=== PATIENT | female | born 1960 | race Caucasian/White ===

== ENCOUNTER 2019-02-07 22:02 | Emergency (ER) | payer MEDICARE, MEDICAID ==
[~2019-02-07] VITALS: Ht 162.6 cm; Wt 69.5 kg
[2019-02-07] MEDS ORDERED: METF500T7 PO (22:21)
[2019-02-07] MEDS ORDERED: BENZ2TAB10 PO (22:21)
[2019-02-07] MEDS ORDERED: METO50 PO (22:21)
[2019-02-07] MEDS ORDERED: ACET-2902 PO (22:21)
[2019-02-07] MEDS ORDERED: ISOS60TA4 PO (22:21)
[2019-02-07] MEDS ORDERED: FURO40 PO (22:21)
[2019-02-07] MEDS ORDERED: SULF1TAB3 PO (22:21)
[2019-02-07] MEDS ORDERED: BISA-151 PO (22:21)
[2019-02-07] MEDS ORDERED: VALS160T2 PO (22:21)
[2019-02-07] MEDS ORDERED: ASPI-556 PO (22:21)
[2019-02-07] MEDS ORDERED: KDUR20 PO (22:21)
[2019-02-07] MEDS ORDERED: TRIL8 PO (22:21)
[2019-02-07 22:34] LABS: GLUCOSE,POINT OF CARE 129 MG/DL (70-110)
[2019-02-07 23:30] VITALS: BP 122/79
== END 2019-02-07 23:54 | disposition home or self-care (01) ==
LOC: EMS 22:06
DX: N95.2 Postmenopausal atrophic vaginitis (principal); N81.4 Uterovaginal prolapse, unspecified; F20.9 Schizophrenia, unspecified; E11.9 Type 2 diabetes mellitus without complications; I10 Essential (primary) hypertension; Z79.899 Other long term (current) drug therapy; Z79.82 Long term (current) use of aspirin; Z79.84 Long term (current) use of oral hypoglycemic drugs

== ENCOUNTER 2019-03-06 07:40 | Emergency (ER) | payer MEDICARE, MEDICAID ==
[~2019-03-06] VITALS: Ht 162.6 cm; Wt 68.0 kg
[~2019-03-06 07:40] MED LIST: ACET-2902 PO; ASPI-556 PO; BENZ2TAB10 PO; BISA-151 PO; FURO40 PO; ISOS60TA4 PO; KDUR20 PO; METF500T7 PO; METO50 PO; SULF1TAB3 PO; TRIL8 PO; VALS160T2 PO
[2019-03-06 08:25] LABS: GLUCOSE,POINT OF CARE 102 MG/DL (70-110)
[2019-03-06 08:38] LABS: EOSINOPHILS % (AUTO) 2.5 % (1.0-6.0); HEMATOCRIT 34.9 % (36-46); HEMOGLOBIN 11.2 g/dL (12.0-16.0); LYMPHOCYTES # (AUTO) 1.2 K/uL (1.0-4.8); LYMPHOCYTES % (AUTO) 23.7 % (22.0-44.0); MEAN CORPUSCULAR HEMOGLOBIN 26.4 pg (26.0-34.0); MEAN CORPUSCULAR VOLUME 83 fL (80-100); MONOCYTES # (AUTO) 0.4 K/uL (0.1-1.0); MONOCYTES % (AUTO) 8.1 % (2.0-9.0); NEUTROPHILS # (AUTO) 3.2 K/uL (1.8-7.7); NEUTROPHILS % (AUTO) 64.7 % (40.0-70.0); PLATELET COUNT (AUTO) 233 K/uL (150-450); RED BLOOD CELL COUNT(AUTO) 4.23 MIL/uL (4.00-5.20); RED CELL DISTRIBUTION WIDTH 15.6 % (11.5-14.5)
[2019-03-06 08:52] LABS: ANION GAP 9 mmol/L (8-16); CALCIUM, TOTAL 9.5 mg/dL (8.8-10.5); CARBON DIOXIDE 27 mmol/L (22-29); CHLORIDE 103 mmol/L (98-107); CREATININE 1.04 mg/dL (0.60-1.30); GLOMERULAR FILTR. RATE CALC 54 mL/min (>60); GLUCOSE,RANDOM 98 mg/dL (70-110); POTASSIUM 3.7 mmol/L (3.5-5.1); SODIUM SERUM 139 mmol/L (136-145); UREA NITROGEN, BLOOD 14 mg/dL (7-18)
[2019-03-06] MEDS ORDERED: METOPROLOL TARTRATE 25 MG TABLET PO ONE (09:00)
[2019-03-06] MEDS ORDERED: METOPROLOL TARTRATE 50 MG TABLET PO ONE (09:00)
[2019-03-06 09:05] LABS: ALANINE AMINOTRANSFERASE 23 U/L (12-78); ALBUMIN 3.9 g/dL (3.4-5.0); ALKALINE PHOSPHATASE 90 U/L (46-116); ASPARTATE AMINOTRANSFERASE 20 U/L (15-37); BILIRUBIN,TOTAL 0.4 mg/dL (0.1-1.0); TOTAL PROTEIN, SERUM 7.6 g/dL (6.4-8.2)
[2019-03-06 09:06] LABS: AMPHET/METH SCREEN,URINE NEGATIVE (NEGATIVE); APPEARANCE,URINE CLOUDY (CLEAR); BARBITURATE SCREEN, URINE NEGATIVE (NEGATIVE); BENZODIAZEPINES SCREEN,URINE NEGATIVE (NEGATIVE); BILIRUBIN,URINE NEGATIVE (NEGATIVE); CANNABINOID SCREEN,URINE NEGATIVE (NEGATIVE); COCAINE SCREEN,URINE NEGATIVE (NEGATIVE); GLUCOSE, URINE (UA) NEGATIVE (NEGATIVE); KETONES,URINE NEGATIVE (NEGATIVE); LEUKOCYTE ESTERASE ,URINE LARGE (NEGATIVE); METHADONE SCREEN, URINE NEGATIVE (NEGATIVE); NITRATE,URINE POSITIVE (NEGATIVE); OCCULT BLOOD,URINE TRACE (NEGATIVE); OPIATE SCREEN,URINE NEGATIVE (NEGATIVE); PHENCYCLIDINE SCREEN,URINE NEGATIVE (NEGATIVE); PROTEIN,URINE NEGATIVE (NEGATIVE); UROBILINOGEN,URINE 0.2 mg/dL (<=1.0)
[2019-03-06 09:20] LABS: BACTERIA,URINE Few /HPF (None Seen); RBC,URINE 0-2 /HPF (0-2)
[2019-03-06 09:21] LABS: SQUAMOUS EPITHELIAL CELL,UR Few /LPF (None Seen)
[2019-03-06] MEDS ORDERED: CEPHALEXIN MONOHYDRATE 500 MG CAPSULE PO ONE (10:30)
[2019-03-06 10:45] VITALS: BP 181/92
== END 2019-03-06 10:50 | disposition home or self-care (01) ==
LOC: EMS 07:43
DX: N81.4 Uterovaginal prolapse, unspecified (principal); N39.0 Urinary tract infection, site not specified; I10 Essential (primary) hypertension; E11.9 Type 2 diabetes mellitus without complications; F20.9 Schizophrenia, unspecified; Z79.84 Long term (current) use of oral hypoglycemic drugs; Z79.82 Long term (current) use of aspirin; Z79.899 Other long term (current) drug therapy
CPT/HCPCS: 36415; 80053; 80307; 81001; 82962; 85025; 87077; 87086; 87186; 99283; G0480

== ENCOUNTER 2019-05-08 17:28 | Emergency (ER) | payer MEDICARE, MEDICAID ==
[~2019-05-08] VITALS: Ht 162.6 cm; Wt 70.5 kg
[~2019-05-08 17:28] MED LIST changes: -ACET-2902 PO; +ACET-3207 PO; +METF500T20 PO; -METF500T7 PO
[2019-05-08] MEDS ORDERED: MECLIZINE HCL 25 MG TABLET PO ONE (18:15)
[2019-05-08] MEDS ORDERED: SODIUM CHLORIDE 0.9% 1,000 ML IV ONE (18:15)
[2019-05-08] MEDS ORDERED: METOCLOPRAMIDE HCL 5 MG/ML 2 ML VIAL IVP ONE (18:15)
[2019-05-08] MEDS ORDERED: DiphenhydrAMINE HCL 50 MG/ML VIAL IVP ONE (18:15)
[2019-05-08] MEDS ORDERED: KETOROLAC TROMETHAMINE 30 MG/ML VIAL IVP ONE (18:15)
[2019-05-08 18:16] LABS: GLUCOSE,POINT OF CARE 139 MG/DL (70-110)
[2019-05-08 18:23] LABS: BASOPHILS % (AUTO) 0.5 % (0.0-2.0); EOSINOPHILS % (AUTO) 0.7 % (1.0-6.0); HEMATOCRIT 37.8 % (36-46); HEMOGLOBIN 12.4 g/dL (12.0-16.0); LYMPHOCYTES # (AUTO) 1.1 K/uL (1.0-4.8); LYMPHOCYTES % (AUTO) 17.4 % (22.0-44.0); MEAN CORPUSCULAR HEMOGLOBIN 26.8 pg (26.0-34.0); MEAN CORPUSCULAR HGB CONC 32.7 G/dL (31.0-37.0); MEAN CORPUSCULAR VOLUME 82 fL (80-100); MONOCYTES # (AUTO) 0.3 K/uL (0.1-1.0); MONOCYTES % (AUTO) 5.2 % (2.0-9.0); NEUTROPHILS # (AUTO) 4.8 K/uL (1.8-7.7); NEUTROPHILS % (AUTO) 76.2 % (40.0-70.0); PLATELET COUNT (AUTO) 158 K/uL (150-450); RED CELL DISTRIBUTION WIDTH 15.5 % (11.5-14.5)
[2019-05-08 18:32] LABS: ANION GAP 10 mmol/L (8-16); CALCIUM, TOTAL 8.6 mg/dL (8.8-10.5); CARBON DIOXIDE 30 mmol/L (22-29); CHLORIDE 99 mmol/L (98-107); GLOMERULAR FILTR. RATE CALC > 60 mL/min (>60); GLUCOSE,RANDOM 153 mg/dL (70-110); POTASSIUM 3.6 mmol/L (3.5-5.1); SODIUM SERUM 139 mmol/L (136-145); UREA NITROGEN, BLOOD 25 mg/dL (7-18)
[2019-05-08 18:38] LABS: CREATININE 1.09 mg/dL (0.60-1.30)
[2019-05-08 20:12] VITALS: BP 173/93
== END 2019-05-08 20:15 | disposition home or self-care (01) ==
LOC: EMS 17:29
DX: R51 Headache (principal); R42 Dizziness and giddiness; R11.2 Nausea with vomiting, unspecified; E11.9 Type 2 diabetes mellitus without complications; I10 Essential (primary) hypertension; F20.9 Schizophrenia, unspecified; Z86.79 Personal history of other diseases of the circulatory system; Z90.49 Acquired absence of other specified parts of digestive tract; Z79.84 Long term (current) use of oral hypoglycemic drugs; Z79.82 Long term (current) use of aspirin; Z79.899 Other long term (current) drug therapy
CPT/HCPCS: 36415; 70450; 80048; 82948; 82962; 85025; 93005; 96361; 96374; 96375; 99285; J1200; J1885; J2765; J7030

== ENCOUNTER 2021-09-15 17:59 | Inpatient (IN) | payer MEDICARE, OTHER ==
[~2021-09-15] VITALS: Ht 157.5 cm; Wt 73.2 kg
[~2021-09-15 17:59] MED LIST changes: -ACET-3207 PO; +ISOS30TA92 PO; -ISOS60TA4 PO; -KDUR20 PO; +METF-911 PO; -METF500T20 PO; +POTA-206 PO; -SULF1TAB3 PO; -VALS160T2 PO; +VALS80TA2 PO
[2021-09-15] MEDS ORDERED: LOSA-382 PO (18:37)
[2021-09-15] MEDS ORDERED: HALO10 PO (18:37)
[2021-09-15] MEDS ORDERED: QUET25TA PO (18:37)
[2021-09-15] MEDS ORDERED: DOCU-270 PO (18:37)
[2021-09-15] MEDS ORDERED: HYDR50TA36 PO (18:37)
[2021-09-15 19:21] LABS: BASOPHILS % (AUTO) 0.6 % (0.0-2.0); EOSINOPHILS % (AUTO) 0.8 % (1.0-6.0); HEMATOCRIT 33.8 % (36-46); HEMOGLOBIN 11.3 g/dL (12.0-16.0); LYMPHOCYTES # (AUTO) 1.8 K/uL (1.0-4.8); MEAN CORPUSCULAR HGB CONC 33.5 G/dL (31.0-37.0); MEAN CORPUSCULAR VOLUME 84 fL (80-100); MONOCYTES # (AUTO) 0.6 K/uL (0.1-1.0); MONOCYTES % (AUTO) 6.5 % (2.0-9.0); NEUTROPHILS # (AUTO) 6.6 K/uL (1.8-7.7); NEUTROPHILS % (AUTO) 72.1 % (40.0-70.0); PLATELET COUNT (AUTO) 188 K/uL (150-450); RED BLOOD CELL COUNT(AUTO) 4.04 MIL/uL (4.00-5.20); RED CELL DISTRIBUTION WIDTH 15.4 % (11.5-14.5)
[2021-09-15 19:30] LABS: ANION GAP 13 mmol/L (8-16); CARBON DIOXIDE 25 mmol/L (22-29); CHLORIDE 106 mmol/L (98-107); CREATININE 1.26 mg/dL (0.60-1.30); GLOMERULAR FILTR. RATE CALC 43 mL/min (>60); GLUCOSE,RANDOM 115 mg/dL (70-110); POTASSIUM 3.7 mmol/L (3.5-5.1); SODIUM SERUM 144 mmol/L (136-145); UREA NITROGEN, BLOOD 31 mg/dL (7-18)
[2021-09-15 19:45] LABS: ALANINE AMINOTRANSFERASE 15 U/L (12-78); ALBUMIN 3.4 g/dL (3.4-5.0); ALKALINE PHOSPHATASE 88 U/L (46-116); ASPARTATE AMINOTRANSFERASE 15 U/L (15-37); BILIRUBIN,TOTAL 0.4 mg/dL (0.1-1.0); THYROID STIMULATING HORMONE 1.76 uIU/mL (0.36-3.74); TOTAL PROTEIN, SERUM 7.4 g/dL (6.4-8.2)
[2021-09-15 21:39] LABS: AMPHET/METH SCREEN,URINE NEGATIVE (NEGATIVE); BARBITURATE SCREEN, URINE NEGATIVE (NEGATIVE); BENZODIAZEPINES SCREEN,URINE NEGATIVE (NEGATIVE); CANNABINOID SCREEN,URINE NEGATIVE (NEGATIVE); COCAINE SCREEN,URINE NEGATIVE (NEGATIVE); METHADONE SCREEN, URINE NEGATIVE (NEGATIVE); OPIATE SCREEN,URINE NEGATIVE (NEGATIVE)
[2021-09-15 21:41] LABS: PHENCYCLIDINE SCREEN,URINE NEGATIVE (NEGATIVE)
[2021-09-15 23:12] LABS: APPEARANCE,URINE CLEAR (CLEAR); BILIRUBIN,URINE NEGATIVE (NEGATIVE); GLUCOSE, URINE (UA) NEGATIVE (NEGATIVE); KETONES,URINE NEGATIVE (NEGATIVE); LEUKOCYTE ESTERASE ,URINE MODERATE (NEGATIVE); NITRATE,URINE POSITIVE (NEGATIVE); OCCULT BLOOD,URINE NEGATIVE (NEGATIVE); PH,URINE 6.5 (5.0-8.0); PROTEIN,URINE POS 1+ (NEGATIVE)
[2021-09-15 23:35] LABS: BACTERIA,URINE Moderate /HPF (None Seen); RBC,URINE 0-2 /HPF (0-2)
[2021-09-16] VITALS (7 sets, daily range): BP systolic 153–187; BP diastolic 61–110
[2021-09-16] MEDS ORDERED: CefTRIAXone 1 GM/DEXTROSE 50 ML IV ONE
[2021-09-16 02:21] LABS: COVID AG,FIA SOURCE NASOPHARYNGEAL
[2021-09-16] MEDS ORDERED: SODIUM CHLORIDE 0.9% 1,000 ML IV ONE (07:45)
[2021-09-16] MEDS ORDERED: DEXTROSE 50%-WATER 25 GM/50 ML SYRINGE IVP PRN (08:00)
[2021-09-16] MEDS ORDERED: ACETAMINOPHEN 325 MG TABLET PO PRN (08:00)
[2021-09-16] MEDS: INSULIN LISPRO 100 UNITS/ML SQ PRN ×2 (12:22→20:42)
[2021-09-16 13:01] LABS: GLUCOMETER DEV NAME(LOC) 6N.1; GLUCOSE,POINT OF CARE 85 MG/DL (70-110)
[2021-09-16] MEDS: DOCUSATE SODIUM 100 MG CAPSULE PO SCH ×2 (14:05→20:40)
[2021-09-16] MEDS: HEPARIN SODIUM,PORCINE 5,000 UNITS/ML VIAL SQ SCH ×3 (14:05→23:37)
[2021-09-16] MEDS: FAMOTIDINE 20 MG TABLET PO SCH (14:05)
[2021-09-16] MEDS: AmLODIPine BESYLATE 10 MG TABLET PO SCH (16:28)
[2021-09-16 17:17] LABS: GLUCOMETER DEV NAME(LOC) 6N.1; GLUCOSE,POINT OF CARE 103 MG/DL (70-110)
[2021-09-16] MEDS ORDERED: HALOPERIDOL LACTATE 5 MG/ML VIAL IM ONE (20:30)
[2021-09-16] MEDS ORDERED: DiphenhydrAMINE HCL 50 MG/ML VIAL IM ONE (20:30)
[2021-09-16] MEDS: CefTRIAXone 1 GM/DEXTROSE 50 ML IV SCH (23:36)
[2021-09-17 00:11] LABS: GLUCOMETER DEV NAME(LOC) 6N.1; GLUCOSE,POINT OF CARE 173 MG/DL (70-110)
[2021-09-17 01:05] VITALS: BP 146/102
[2021-09-17 04:07] VITALS: BP 151/110
[2021-09-17 07:58] VITALS: BP 135/88
[2021-09-17] MEDS: HEPARIN SODIUM,PORCINE 5,000 UNITS/ML VIAL SQ SCH ×3 (08:13→23:51)
[2021-09-17] MEDS: DOCUSATE SODIUM 100 MG CAPSULE PO SCH ×2 (08:13→20:31)
[2021-09-17] MEDS: AmLODIPine BESYLATE 10 MG TABLET PO SCH (08:14)
[2021-09-17] MEDS: FAMOTIDINE 20 MG TABLET PO SCH (08:14)
[2021-09-17] MEDS: INSULIN LISPRO 100 UNITS/ML SQ PRN ×2 (12:20→20:30)
[2021-09-17 12:56] LABS: GLUCOMETER DEV NAME(LOC) 6N.1; GLUCOSE,POINT OF CARE 147 MG/DL (70-110)
[2021-09-17 15:54] VITALS: BP 132/73
[2021-09-17 19:11] LABS: GLUCOMETER DEV NAME(LOC) 6N.1; GLUCOSE,POINT OF CARE 93 MG/DL (70-110)
[2021-09-17 20:30] VITALS: BP 127/85
[2021-09-17 21:51] LABS: GLUCOMETER DEV NAME(LOC) 6N.1; GLUCOSE,POINT OF CARE 174 MG/DL (70-110)
[2021-09-17 23:50] VITALS: BP 125/84
[2021-09-17] MEDS: CefTRIAXone 1 GM/DEXTROSE 50 ML IV SCH (23:51)
[2021-09-18 05:00] VITALS: BP 123/88
[2021-09-18 07:47] VITALS: BP 155/100
[2021-09-18] MEDS: AmLODIPine BESYLATE 10 MG TABLET PO SCH (07:58)
[2021-09-18] MEDS: HEPARIN SODIUM,PORCINE 5,000 UNITS/ML VIAL SQ SCH (08:02)
[2021-09-18] MEDS: FAMOTIDINE 20 MG TABLET PO SCH (08:29)
[2021-09-18] MEDS: DOCUSATE SODIUM 100 MG CAPSULE PO SCH (08:34)
[2021-09-18 08:47] VITALS: BP 133/102
[2021-09-18 11:02] LABS: COVID AG,FIA SOURCE NASAL SWAB
[2021-09-18 15:22] VITALS: BP 134/86
[2021-09-18 15:36] LABS: GLUCOMETER DEV NAME(LOC) 4E.2; GLUCOSE,POINT OF CARE 151 MG/DL (70-110)
== END 2021-09-18 16:30 | disposition home or self-care (01) | DRG 689 ==
LOC: EMS 18:06 → 6N 09-16 05:30 → 6S 09-16 13:58
PROVIDERS: ADMIT Internal Medicine; ATTEND Internal Medicine
DX: N39.0 Urinary tract infection, site not specified (principal); G92.9 Unspecified toxic encephalopathy; E11.9 Type 2 diabetes mellitus without complications; I10 Essential (primary) hypertension; F20.9 Schizophrenia, unspecified; Z20.822 Contact with and (suspected) exposure to COVID-19; Z86.73 Personal history of transient ischemic attack (TIA), and cerebral infarction without residual deficits
CPT/HCPCS: 70450; 71045; 80053; 81001; 82962; 84443; 84484; 85025; 87086; 92610; 93005; 97163; 97166; 97535; 99285; G0480; J0696; J1200; J1630; J1644; J7030; 36415-L1; 36415-TC

== ENCOUNTER 2022-01-07 23:52 | Emergency (ER) | payer MEDICARE, OTHER ==
[~2022-01-07] VITALS: Ht 165.1 cm; Wt 75.0 kg
[~2022-01-07 23:52] MED LIST changes: -BENZ2TAB10 PO; +BENZ2TAB76 PO; -BISA-151 PO; -FURO40 PO; -ISOS30TA92 PO; -POTA-206 PO; -TRIL8 PO; -VALS80TA2 PO
[2022-01-08 00:56] LABS: COVID AG,FIA SOURCE NASAL SWAB
[2022-01-08 01:07] LABS: BASOPHILS % (AUTO) 0.9 % (0.0-2.0); EOSINOPHILS % (AUTO) 5.8 % (1.0-6.0); HEMATOCRIT 35.8 % (36-46); HEMOGLOBIN 11.7 g/dL (12.0-16.0); LYMPHOCYTES # (AUTO) 1.9 K/uL (1.0-4.8); LYMPHOCYTES % (AUTO) 39.7 % (22.0-44.0); MEAN CORPUSCULAR HEMOGLOBIN 27.4 pg (26.0-34.0); MEAN CORPUSCULAR HGB CONC 32.6 G/dL (31.0-37.0); MEAN CORPUSCULAR VOLUME 84 fL (80-100); MONOCYTES # (AUTO) 0.6 K/uL (0.1-1.0); MONOCYTES % (AUTO) 12.7 % (2.0-9.0); NEUTROPHILS % (AUTO) 40.9 % (40.0-70.0); PLATELET COUNT (AUTO) 214 K/uL (150-450); RED BLOOD CELL COUNT(AUTO) 4.27 MIL/uL (4.00-5.20); RED CELL DISTRIBUTION WIDTH 14.5 % (11.5-14.5)
[2022-01-08 01:09] LABS: CALCIUM, TOTAL 8.9 mg/dL (8.8-10.5); CREATININE 1.61 mg/dL (0.60-1.30); POTASSIUM 4.1 mmol/L (3.5-5.1)
[2022-01-08 01:18] LABS: LACTIC ACID 0.8 mmol/L (0.4-2.0)
[2022-01-08 01:26] LABS: AMMONIA < 10 umol/L (11-32)
[2022-01-08 01:35] LABS: ALBUMIN 3.8 g/dL (3.4-5.0); BILIRUBIN,TOTAL 0.3 mg/dL (0.1-1.0); TOTAL PROTEIN, SERUM 8.2 g/dL (6.4-8.2)
[2022-01-08] MEDS ORDERED: NALOXONE HCL 1 MG/ML 2 ML SYRINGE IVP ONE (01:45)
[2022-01-08] MEDS ORDERED: ATOR20TA65 PO (03:49)
[2022-01-08] MEDS ORDERED: LOSA100T58 PO (03:49)
[2022-01-08] MEDS ORDERED: CHLO50TA24 PO (03:49)
[2022-01-08] MEDS ORDERED: CARV12.530 PO (03:49)
[2022-01-08] MEDS ORDERED: QUET400T13 PO (03:49)
[2022-01-08] MEDS ORDERED: HYDR-4174 PO (03:49)
[2022-01-08] MEDS ORDERED: DIVA-111 PO (03:49)
[2022-01-08] MEDS ORDERED: FURO20TA4 PO (03:49)
[2022-01-08 04:30] VITALS: BP 143/89
== END 2022-01-08 07:10 | disposition home or self-care (01) ==
LOC: EMS 23:55
DX: R41.82 Altered mental status, unspecified (principal); F20.9 Schizophrenia, unspecified; E11.65 Type 2 diabetes mellitus with hyperglycemia; T50.995A Adverse effect of other drugs, medicaments and biological substances, initial encounter; I10 Essential (primary) hypertension; Z20.822 Contact with and (suspected) exposure to COVID-19; Z79.84 Long term (current) use of oral hypoglycemic drugs; Y92.89 Other specified places as the place of occurrence of the external cause
CPT/HCPCS: 51702; 70450; 71045; 80053; 82140; 82550; 83605; 84484; 85025; 87040; 93005; 99285; 36415-L1; 36415-TC

== ENCOUNTER 2022-07-20 12:22 | Inpatient (IN) | payer MEDICARE, OTHER ==
[~2022-07-20] VITALS: Ht 162.6 cm; Wt 62.2 kg
[~2022-07-20 12:22] MED LIST changes: +ATOR20TA65 PO; +CARV12.530 PO; +CHLO50TA53 PO; +DIVA-111 PO; +FURO20TA4 PO; +HYDR-4174 PO; +LOSA100T58 PO; +METF-81 PO; -METF-911 PO; +QUET400T13 PO
[2022-07-20] MEDS ORDERED: IOHEXOL 350 MG/ML 100 ML VIAL ONE (12:35)
[2022-07-20] MEDS ORDERED: SODIUM CHLORIDE 0.9% 100 ML ONE (12:35)
[2022-07-20 13:15] LABS: COVID AG,FIA SOURCE NASOPHARYNGEAL
[2022-07-20 13:49] LABS: CALCIUM, TOTAL 8.7 mg/dL (8.8-10.5); CREATININE 1.79 mg/dL (0.60-1.30); POTASSIUM 4.6 mmol/L (3.5-5.1)
[2022-07-20 13:50] LABS: BASOPHILS % (AUTO) 0.3 % (0.0-2.0); EOSINOPHILS % (AUTO) 1.8 % (1.0-6.0); HEMATOCRIT 32.9 % (36-46); HEMOGLOBIN 10.8 g/dL (12.0-16.0); LYMPHOCYTES # (AUTO) 1.6 K/uL (1.0-4.8); LYMPHOCYTES % (AUTO) 22.3 % (22.0-44.0); MEAN CORPUSCULAR HEMOGLOBIN 28.5 pg (26.0-34.0); MEAN CORPUSCULAR HGB CONC 32.7 G/dL (31.0-37.0); MEAN CORPUSCULAR VOLUME 87 fL (80-100); MONOCYTES % (AUTO) 14.2 % (2.0-9.0); NEUTROPHILS # (AUTO) 4.3 K/uL (1.8-7.7); NEUTROPHILS % (AUTO) 61.4 % (40.0-70.0); PLATELET COUNT (AUTO) 157 K/uL (150-450); RED BLOOD CELL COUNT(AUTO) 3.78 MIL/uL (4.00-5.20); RED CELL DISTRIBUTION WIDTH 14.5 % (11.5-14.5)
[2022-07-20 13:54] LABS: BILIRUBIN,TOTAL 0.2 mg/dL (0.1-1.0); TOTAL PROTEIN, SERUM 7.6 g/dL (6.4-8.2)
[2022-07-20 13:56] LABS: B-TYPE NATRIURETIC PEPTIDE 45 pg/mL (0-100); PHOSPHORUS 4.3 mg/dL (2.5-4.9)
[2022-07-20 14:02] LABS: INR 1.1 (0.9-1.1); PROTHROMBIN TIME 11.4 SEC (9.4-11.6)
[2022-07-20] MEDS ORDERED: DEXTROSE 50%-WATER 25 GM/50 ML SYRINGE IVP PRN (14:15)
[2022-07-20] MEDS ORDERED: SODIUM CHLORIDE 0.9% 1,000 ML IV ONE (14:15)
[2022-07-20] MEDS ORDERED: INSULIN LISPRO 100 UNITS/ML SQ PRN (14:15)
[2022-07-20] MEDS ORDERED: MAGNESIUM HYDROXIDE SUSPENSION 30 ML UDCUP PO PRN (14:15)
[2022-07-20] MEDS ORDERED: ACETAMINOPHEN 325 MG TABLET PO PRN (14:15)
[2022-07-20 14:44] LABS: APPEARANCE,URINE HAZY (CLEAR); BILIRUBIN,URINE NEGATIVE (NEGATIVE); GLUCOSE, URINE (UA) NEGATIVE (NEGATIVE); KETONES,URINE NEGATIVE (NEGATIVE); LEUKOCYTE ESTERASE ,URINE LARGE (NEGATIVE); NITRATE,URINE POSITIVE (NEGATIVE); OCCULT BLOOD,URINE NEGATIVE (NEGATIVE); PROTEIN,URINE NEGATIVE (NEGATIVE); SPECIFIC GRAVITIY, URINE 1.016 (1.003-1.030); UROBILINOGEN,URINE <=1.0 mg/dL (<=1.0)
[2022-07-20 14:49] LABS: AMPHET/METH SCREEN,URINE NEGATIVE (NEGATIVE); BARBITURATE SCREEN, URINE NEGATIVE (NEGATIVE); BENZODIAZEPINES SCREEN,URINE NEGATIVE (NEGATIVE); CANNABINOID SCREEN,URINE NEGATIVE (NEGATIVE); COCAINE SCREEN,URINE NEGATIVE (NEGATIVE); METHADONE SCREEN, URINE NEGATIVE (NEGATIVE); OPIATE SCREEN,URINE NEGATIVE (NEGATIVE)
[2022-07-20 14:50] LABS: PHENCYCLIDINE SCREEN,URINE NEGATIVE (NEGATIVE)
[2022-07-20] MEDS: HEPARIN SODIUM,PORCINE 5,000 UNITS/ML VIAL SQ SCH ×2 (15:04→23:51)
[2022-07-20] MEDS ORDERED: CefTRIAXone 1 GM/DEXTROSE 50 ML IV ONE (15:30)
[2022-07-20 16:06] LABS: BACTERIA,URINE Many /HPF (None Seen); RBC,URINE None Seen /HPF (0-2); WBC,URINE 26-50 /HPF (0-5)
[2022-07-20] MEDS: ATORVASTATIN CALCIUM 20 MG TABLET PO SCH (21:32)
[2022-07-20] MEDS: CARVEDILOL 6.25 MG TABLET PO SCH (21:32)
[2022-07-21 04:31] LABS: GLUCOMETER DEV NAME(LOC) 5S.1B; GLUCOSE,POINT OF CARE 108 MG/DL (70-110)
[2022-07-21 05:38] VITALS: BP 124/82
[2022-07-21 06:09] LABS: CALCIUM, TOTAL 8.6 mg/dL (8.8-10.5); CREATININE 1.52 mg/dL (0.60-1.30); POTASSIUM 3.6 mmol/L (3.5-5.1)
[2022-07-21 07:31] LABS: GLUCOMETER DEV NAME(LOC) 5S.2B; GLUCOSE,POINT OF CARE 89 MG/DL (70-110)
[2022-07-21] MEDS: CARVEDILOL 6.25 MG TABLET PO SCH ×2 (08:13→20:23)
[2022-07-21] MEDS: ASPIRIN 81 MG CHEWABLE TABLET PO SCH (08:13)
[2022-07-21] MEDS: HEPARIN SODIUM,PORCINE 5,000 UNITS/ML VIAL SQ SCH ×2 (08:13→18:32)
[2022-07-21] MEDS: FAMOTIDINE 20 MG TABLET PO SCH (08:13)
[2022-07-21 08:23] VITALS: BP 123/87
[2022-07-21 11:29] VITALS: BP 155/84
[2022-07-21 16:46] VITALS: BP 142/88
[2022-07-21 20:06] LABS: GLUCOMETER DEV NAME(LOC) 5S.1B; GLUCOSE,POINT OF CARE 164 MG/DL (70-110)
[2022-07-21 20:06] LABS: GLUCOMETER DEV NAME(LOC) 5S.1B; GLUCOSE,POINT OF CARE 107 MG/DL (70-110)
[2022-07-21 20:06] LABS: GLUCOMETER DEV NAME(LOC) 5S.1B; GLUCOSE,POINT OF CARE 123 MG/DL (70-110)
[2022-07-21] MEDS: DIVALPROEX SODIUM 250 MG DR TABLET PO SCH (20:23)
[2022-07-21] MEDS: ChlorproMAZINE HCL 50 MG TABLET PO SCH (20:23)
[2022-07-21] MEDS: ATORVASTATIN CALCIUM 20 MG TABLET PO SCH (20:23)
[2022-07-21] MEDS ORDERED: QUEtiapine FUMARATE 25 MG TABLET PO SCH (21:00)
[2022-07-21 21:15] VITALS: BP 147/108
[2022-07-22] MEDS: HEPARIN SODIUM,PORCINE 5,000 UNITS/ML VIAL SQ SCH ×3 (01:30→16:00)
[2022-07-22 05:28] VITALS: BP 110/72
[2022-07-22 06:16] LABS: GLUCOMETER DEV NAME(LOC) 5S.1B; GLUCOSE,POINT OF CARE 75 MG/DL (70-110)
[2022-07-22] MEDS: ASPIRIN 81 MG CHEWABLE TABLET PO SCH (08:00)
[2022-07-22] MEDS: DIVALPROEX SODIUM 250 MG DR TABLET PO SCH (08:01)
[2022-07-22] MEDS: CARVEDILOL 6.25 MG TABLET PO SCH (08:01)
[2022-07-22] MEDS: FAMOTIDINE 20 MG TABLET PO SCH (08:01)
[2022-07-22] MEDS: ChlorproMAZINE HCL 50 MG TABLET PO SCH (08:01)
[2022-07-22 08:05] VITALS: BP 124/89
[2022-07-22] MEDS ORDERED: SODIUM CHLORIDE 0.9% 500 ML IV ONE (08:47)
[2022-07-22 15:45] VITALS: BP 121/90
== END 2022-07-22 19:45 | disposition home or self-care (01) | DRG 92 ==
LOC: EDUNIT# 12:22 → EMS 12:22 → 5S 19:00
PROVIDERS: ADMIT Internal Medicine; ATTEND Internal Medicine
DX: G92.9 Unspecified toxic encephalopathy (principal); F20.0 Paranoid schizophrenia; I13.0 Hypertensive heart and chronic kidney disease with heart failure and stage 1 through stage 4 chronic kidney disease, or unspecified chronic kidney disease; N17.9 Acute kidney failure, unspecified; N39.0 Urinary tract infection, site not specified; I50.9 Heart failure, unspecified; E11.22 Type 2 diabetes mellitus with diabetic chronic kidney disease; N18.30 Chronic kidney disease, stage 3 unspecified; F41.9 Anxiety disorder, unspecified; Z20.822 Contact with and (suspected) exposure to COVID-19; G20 Parkinson's disease; Z86.73 Personal history of transient ischemic attack (TIA), and cerebral infarction without residual deficits; Z79.899 Other long term (current) drug therapy; Z79.82 Long term (current) use of aspirin
CPT/HCPCS: 51701; 70496; 70498; 71045; 80048; 80053; 81001; 82948; 82962; 83735; 83880; 84100; 84484; 85025; 85610; 85730; 86850; 86900; 86901; 87086; 87186; 92610; 93005; 97162; 99291; G0480; J0696; J1644; J7040; J7050; Q9967; 36415-L1; 36415-TC; 70450; 70450-TC

== ENCOUNTER 2022-12-31 13:04 | Emergency (ER) | payer MEDICARE, OTHER ==
[~2022-12-31] VITALS: Ht 162.6 cm; Wt 68.2 kg
[~2022-12-31 13:04] MED LIST changes: -BENZ2TAB76 PO; -CHLO50TA53 PO; -FURO20TA4 PO; -HYDR-4174 PO; -LOSA100T58 PO; -METF-81 PO; -METO50 PO
[2022-12-31 13:18] VITALS: BP 125/84
[2022-12-31 13:36] LABS: GLUCOSE,POINT OF CARE 90 MG/DL (70-110)
[2022-12-31 14:26] LABS: BASOPHILS % (AUTO) 0.7 % (0.0-2.0); EOSINOPHILS % (AUTO) 3.1 % (1.0-6.0); HEMATOCRIT 39.7 % (36-46); HEMOGLOBIN 12.9 g/dL (12.0-16.0); LYMPHOCYTES # (AUTO) 2.1 K/uL (1.0-4.8); LYMPHOCYTES % (AUTO) 35.3 % (22.0-44.0); MEAN CORPUSCULAR HEMOGLOBIN 27.8 pg (26.0-34.0); MEAN CORPUSCULAR HGB CONC 32.4 G/dL (31.0-37.0); MEAN CORPUSCULAR VOLUME 86 fL (80-100); MONOCYTES # (AUTO) 0.5 K/uL (0.1-1.0); MONOCYTES % (AUTO) 8.6 % (2.0-9.0); NEUTROPHILS # (AUTO) 3.1 K/uL (1.8-7.7); NEUTROPHILS % (AUTO) 52.3 % (40.0-70.0); PLATELET COUNT (AUTO) 209 K/uL (150-450); RED BLOOD CELL COUNT(AUTO) 4.64 MIL/uL (4.00-5.20); RED CELL DISTRIBUTION WIDTH 15.2 % (11.5-14.5)
[2022-12-31 14:40] LABS: PROTHROMBIN TIME 10.9 SEC (9.4-11.6)
[2022-12-31 14:45] LABS: ANION GAP 15 mmol/L (8-16); CALCIUM, TOTAL 8.9 mg/dL (8.8-10.5); CARBON DIOXIDE 26 mmol/L (22-29); CHLORIDE 104 mmol/L (98-107); CREATININE 1.52 mg/dL (0.60-1.30); GLOMERULAR FILTR. RATE CALC 34 mL/min (>60); GLUCOSE,RANDOM 71 mg/dL (70-110); POTASSIUM 3.9 mmol/L (3.5-5.1); SODIUM SERUM 145 mmol/L (136-145)
[2022-12-31 15:07] LABS: LACTIC ACID 2.4 mmol/L (0.4-2.0)
[2022-12-31 15:08] LABS: ALANINE AMINOTRANSFERASE 15 U/L (12-78); ALBUMIN 3.5 g/dL (3.4-5.0); ALKALINE PHOSPHATASE 80 U/L (46-116); AMMONIA 14 umol/L (11-32); ASPARTATE AMINOTRANSFERASE 13 U/L (15-37); BILIRUBIN,TOTAL 0.4 mg/dL (0.1-1.0); TOTAL PROTEIN, SERUM 8.4 g/dL (6.4-8.2)
[2022-12-31] MEDS ORDERED: SODIUM CHLORIDE 0.9% 1,000 ML IV ONE (15:15)
[2022-12-31 15:46] LABS: APPEARANCE,URINE HAZY (CLEAR); BILIRUBIN,URINE NEGATIVE (NEGATIVE); GLUCOSE, URINE (UA) NEGATIVE (NEGATIVE); KETONES,URINE NEGATIVE (NEGATIVE); LEUKOCYTE ESTERASE ,URINE LARGE (NEGATIVE); NITRATE,URINE POSITIVE (NEGATIVE); OCCULT BLOOD,URINE NEGATIVE (NEGATIVE); PH,URINE 6.5 (5.0-8.0); PROTEIN,URINE TRACE mg/dL (NEGATIVE); SPECIFIC GRAVITIY, URINE 1.011 (1.003-1.030); UROBILINOGEN,URINE <=1.0 mg/dL (<=1.0)
[2022-12-31 15:52] LABS: AMPHET/METH SCREEN,URINE NEGATIVE (NEGATIVE); BARBITURATE SCREEN, URINE NEGATIVE (NEGATIVE); BENZODIAZEPINES SCREEN,URINE NEGATIVE (NEGATIVE); CANNABINOID SCREEN,URINE NEGATIVE (NEGATIVE); COCAINE SCREEN,URINE NEGATIVE (NEGATIVE); METHADONE SCREEN, URINE NEGATIVE (NEGATIVE); OPIATE SCREEN,URINE NEGATIVE (NEGATIVE); PHENCYCLIDINE SCREEN,URINE NEGATIVE (NEGATIVE)
[2022-12-31 16:07] LABS: BACTERIA,URINE Many /HPF (None Seen); RBC,URINE None Seen /HPF (0-2); WBC,URINE 51-100 /HPF (0-5)
[2022-12-31] MEDS ORDERED: CefTRIAXone 1 GM/DEXTROSE 50 ML IV ONE (16:30)
[2022-12-31] MEDS ORDERED: CEPH-558 PO (16:55)
== END 2022-12-31 17:41 | disposition home or self-care (01) ==
LOC: EMS 13:17
DX: E86.0 Dehydration (principal); N39.0 Urinary tract infection, site not specified; F41.9 Anxiety disorder, unspecified; F20.9 Schizophrenia, unspecified; I11.0 Hypertensive heart disease with heart failure; I50.9 Heart failure, unspecified; E11.9 Type 2 diabetes mellitus without complications; Z86.73 Personal history of transient ischemic attack (TIA), and cerebral infarction without residual deficits; Z79.82 Long term (current) use of aspirin; Z79.899 Other long term (current) drug therapy
CPT/HCPCS: 99285; 96365; 70450; 71045; 96361; 80053; 82140; 82962; 83605; 84484; 85025; 85610; 85730; 87040; 36415; 87086; 87186; 93005; 80307; 81001; G0480; J0696; 51702

== ENCOUNTER 2023-11-14 08:59 | Emergency (ER) | payer MEDICARE, OTHER ==
[~2023-11-14] VITALS: Ht 154.9 cm; Wt 57.0 kg
[~2023-11-14 08:59] MED LIST changes: +ASPI-1450 PO; -ASPI-556 PO; +BENZ2TAB71 PO; -CARV12.530 PO; +CARV3.1231 PO; +CHLO100T36 PO; -DIVA-111 PO; +DIVA-112 PO; +DOCU100C33 PO; +FOLI-130 PO; +MEMA5TAB16 PO; +METF-1211 PO; +METH1TAB66 PO; -QUET400T13 PO; +TRAZ-252 PO
[2023-11-14 09:46] LABS: BASOPHILS % (AUTO) 0.6 % (0.0-2.0); EOSINOPHILS % (AUTO) 4.8 % (1.0-6.0); HEMATOCRIT 34.6 % (36-46); HEMOGLOBIN 11.3 g/dL (12.0-16.0); LYMPHOCYTES # (AUTO) 2.3 K/uL (1.0-4.8); LYMPHOCYTES % (AUTO) 32.9 % (22.0-44.0); MEAN CORPUSCULAR HEMOGLOBIN 29.2 pg (26.0-34.0); MEAN CORPUSCULAR HGB CONC 32.7 G/dL (31.0-37.0); MEAN CORPUSCULAR VOLUME 89 fL (80-100); MONOCYTES # (AUTO) 0.8 K/uL (0.1-1.0); MONOCYTES % (AUTO) 10.7 % (2.0-9.0); NEUTROPHILS # (AUTO) 3.6 K/uL (1.8-7.7); PLATELET COUNT (AUTO) 170 K/uL (150-450); RED BLOOD CELL COUNT(AUTO) 3.88 MIL/uL (4.00-5.20); RED CELL DISTRIBUTION WIDTH 15.1 % (11.5-14.5); WHITE BLOOD COUNT (AUTO) 7.1 K/uL (4.5-11.0)
[2023-11-14 09:52] LABS: COVID AG,FIA SOURCE NPH
[2023-11-14 09:59] LABS: ANION GAP 6 mmol/L (8-16); CALCIUM, TOTAL 8.5 mg/dL (8.8-10.5); CARBON DIOXIDE 31 mmol/L (22-29); CHLORIDE 102 mmol/L (98-107); CREATININE 1.21 mg/dL (0.60-1.30); GLOMERULAR FILTR. RATE CALC 45 mL/min (>60); GLUCOSE,RANDOM 74 mg/dL (70-110); POTASSIUM 4.4 mmol/L (3.5-5.1); SODIUM SERUM 139 mmol/L (136-145); UREA NITROGEN, BLOOD 25 mg/dL (7-18)
[2023-11-14 10:04] LABS: ALCOHOL, BLOOD (SERUM) < 3 mg/dL (0-10); TROPONIN I-HIGH SENSITIVITY Less Than 4 ng/L (<51)
[2023-11-14 10:09] LABS: ALANINE AMINOTRANSFERASE 10 U/L (12-78); ALBUMIN 2.8 g/dL (3.4-5.0); ALKALINE PHOSPHATASE 60 U/L (46-116); ASPARTATE AMINOTRANSFERASE 15 U/L (15-37); BILIRUBIN,TOTAL 0.3 mg/dL (0.1-1.0); THYROID STIMULATING HORMONE 3.66 uIU/mL (0.36-3.74); TOTAL PROTEIN, SERUM 6.8 g/dL (6.4-8.2)
[2023-11-14 10:28] LABS: SARS-COV2 (COVID) ANTIGEN,FIA Negative (Negative)
[2023-11-14 10:49] LABS: APPEARANCE,URINE CLEAR (CLEAR); BILIRUBIN,URINE NEGATIVE (NEGATIVE); COLOR,URINE LIGHT YELLOW (YELLOW); GLUCOSE, URINE (UA) NEGATIVE (NEGATIVE); KETONES,URINE NEGATIVE (NEGATIVE); LEUKOCYTE ESTERASE ,URINE NEGATIVE (NEGATIVE); NITRATE,URINE NEGATIVE (NEGATIVE); OCCULT BLOOD,URINE NEGATIVE (NEGATIVE); PH,URINE 7.5 (5.0-8.0); PH,URINE DRUG SCREEN 7.5 (5.0-8.0); PROTEIN,URINE NEGATIVE (NEGATIVE); SPECIFIC GRAVITIY, URINE 1.017 (1.003-1.030); UROBILINOGEN,URINE <=1.0 mg/dL (<=1.0)
[2023-11-14 10:55] LABS: ALCOHOL, URINE DRUG SCREEN NEGATIVE (NEGATIVE); AMPHET/METH SCREEN,URINE NEGATIVE (NEGATIVE); BARBITURATE SCREEN, URINE NEGATIVE (NEGATIVE); BENZODIAZEPINES SCREEN,URINE NEGATIVE (NEGATIVE); CANNABINOID SCREEN,URINE NEGATIVE (NEGATIVE); COCAINE SCREEN,URINE NEGATIVE (NEGATIVE); METHADONE SCREEN, URINE NEGATIVE (NEGATIVE); OPIATE SCREEN,URINE NEGATIVE (NEGATIVE); PHENCYCLIDINE SCREEN,URINE NEGATIVE (NEGATIVE)
[2023-11-14 12:18] LABS: TROPONIN I-HIGH SENSITIVITY Less Than 4 ng/L (<51)
[2023-11-14 12:35] VITALS: TEMP 98.1
[2023-11-14 14:35] VITALS: BP 154/108; PULSE 80; RESP 16
== END 2023-11-14 18:07 ==
LOC: EMS 08:59
DX: F20.9 Schizophrenia, unspecified (principal); R07.9 Chest pain, unspecified; E11.9 Type 2 diabetes mellitus without complications; I10 Essential (primary) hypertension; N18.30 Chronic kidney disease, stage 3 unspecified; Z20.822 Contact with and (suspected) exposure to COVID-19
CPT/HCPCS: 99285; 71045; 87426; 80053; 84443; 84484; 85025; 36415; 93005; 80307; 81003; G0480